=== PATIENT | male | born 1955 | race Two or more races ===

== ENCOUNTER 2022-01-01 08:28 | Outpatient (CLI) | payer OTHER | END 2022-01-01 08:31 | disposition home or self-care (01) | LOC: SONOGRAMA 08:28 | PROVIDERS: ATTEND Specialist | DX: R97.20 Elevated prostate specific antigen [PSA] (principal); N40.3 Nodular prostate with lower urinary tract symptoms ==

== ENCOUNTER 2023-02-04 08:24 | Outpatient (CLI) | payer OTHER | END 2023-02-04 08:27 | disposition home or self-care (01) | LOC: SONOGRAMA 08:24 | PROVIDERS: ATTEND Specialist | DX: N40.2 Nodular prostate without lower urinary tract symptoms (principal); R97.20 Elevated prostate specific antigen [PSA] ==